=== PATIENT | male | born 1995 | race Caucasian/White ===

== ENCOUNTER 2016-09-08 03:17 | Emergency (ER) | payer SELFPAY ==
[~2016-09-08] VITALS: Ht 167.6 cm; Wt 61.7 kg
--- NOTE | 2016-09-08 03:25 | NUR ---
BIB 97. HERE [facility] INTOXICATION. "FOUND SITTING ON CHAIR OUTSIDE SOMEONE'S HOUSE". NO S/S OF TRAUMA NOTED. AAOX4. STATES "I DRANK A LOT OF VODKA". DENIES ANY CP/SOB/N/V/DIZZINESS. PLACED ON MONITOR AND INFORMED OF PLAN OF CARE.
--- NOTE | 2016-09-08 04:21 | NUR ---
RESTING WITH NO S/S OF DISTRESS. RESP EVEN AND UNLABORED. ON MONITOR.
--- NOTE | 2016-09-08 04:35 | NUR ---
Pt friend ayan ramirez .
--- NOTE | 2016-09-08 05:08 | NUR ---
REMAINS RESTING WITH NO S/S OF DISTRESS. RESP EVEN AND UNLABORED. STILL MONITORED CLOSELY.
--- NOTE | 2016-09-08 06:19 | NUR ---
REMAINS RESTING BUT AROUSABLE. NON ACUTE SX'S NOTED AT THIS TIME. RESP EVEN AND UNLABORED.
--- NOTE | 2016-09-08 07:19 | NUR ---
REPORT GIVEN TO JC/KG FOR MUKESH.
--- NOTE | 2016-09-08 07:30 | NUR ---
Patient is resting comfortably in bed with eyes closed. Easily aroused. VSS. ALL NEEDS ATTENDED.
--- NOTE | 2016-09-08 09:00 | NUR ---
Patient is resting comfortably in bed with eyes closed. Easily aroused. VSS.
[2016-09-08 10:07] VITALS: BP 111/68
--- NOTE | 2016-09-08 10:09 | NUR ---
Patient discharged to home in stable condition. Written and verbal after care instructions given. Patient verbalizes understanding of instruction. ambulatory with steady gait. no further complaints.
== END 2016-09-08 10:10 | disposition home or self-care (01) ==
LOC: ER 03:19
DX: F10.129 Alcohol abuse with intoxication, unspecified (principal); R79.89 Other specified abnormal findings of blood chemistry
CPT/HCPCS: 82962; 99283; A4606; Z7610